=== PATIENT | male | born 1950 | race Caucasian/White ===

== ENCOUNTER 2016-12-19 17:41 | Inpatient (IN) | payer MEDICAID ==
[~2016-12-19] VITALS: Ht 182.9 cm; Wt 81.6 kg
[2016-12-19] MEDS ORDERED: Ketorolac 30mg Inj IV ONE (18:15)
[2016-12-19 18:21] LABS: BASOPHILS % (AUTO) 0.8 % (0.0-2.0); EOSINOPHILS % (AUTO) 3.1 % (0.0-3.0); LYMPHOCYTES % (AUTO) 28.9 % (20.0-45.0); MEAN CORPUSCULAR HEMOGLOBIN 32.8 PG (27.0-31.0); MEAN CORPUSCULAR HGB CONC 34.1 G/DL (32.0-36.0); MEAN CORPUSCULAR VOLUME 96 FL (80-99); MEAN PLATELET VOLUME 7.1 FL (6.5-10.1); MONOCYTES % (AUTO) 8.3 % (1.0-10.0); PLATELET COUNT 190 K/UL (150-450); RED CELL DISTRIBUTION WIDTH 12.8 % (11.6-14.8)
[2016-12-19 18:31] VITALS: BP 130/96
[2016-12-19 18:36] LABS: INR 1.1 (0.9-1.1); PROTHROMBIN TIME 11.6 SEC (9.30-11.50)
[2016-12-19 18:56] LABS: TROPONIN I < 0.30 ng/mL (<=0.30)
[2016-12-19 18:59] LABS: ALBUMIN/GLOBULIN RATIO 1.4 (1.0-2.7); CALCIUM 8.9 mg/dL (8.6-10.2); CREATININE 1.3 mg/dL (0.7-1.2); GLOMERULAR FILTRATION RATE 54.9 mL/min (>60); TOTAL PROTEIN 7.7 g/dL (6.6-8.7)
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
[2016-12-19 19:10] LABS: CKMB 7.3 ng/mL (< 6.7)
[2016-12-19 19:11] LABS: POTASSIUM 6.2 mEQ/L (3.4-4.9)
[2016-12-19] MEDS ORDERED: Bacitracin Oint UD TOPIC ONE (19:15)
[2016-12-19 19:34] LABS: BILIRUBIN,DIRECT 0.4 mg/dL (0.1-0.3)
[2016-12-19 20:06] LABS: CALCIUM 8.5 mg/dL (8.6-10.2); CARBON DIOXIDE 22 mEQ/L (20-30); CREATININE 1.2 mg/dL (0.7-1.2); GLOMERULAR FILTRATION RATE > 60 mL/min (>60); HEMOLYSIS 0
[2016-12-19 20:07] LABS: CHLORIDE 98 mEQ/L (98-107); SODIUM 134 mEQ/L (135-145)
[2016-12-19 20:12] LABS: ANION GAP 14 (5-15)
[2016-12-19 20:23] LABS: POTASSIUM 6.4 mEQ/L (3.4-4.9)
[2016-12-19] MEDS ORDERED: Calcium Gluconate 1gm/10ml vial IVP ONE ×2 (20:30→22:15)
[2016-12-19] MEDS ORDERED: Sodium Polystyrene Sulfonate 15gm Powder ORAL ONE ×2 (20:30→22:15)
[2016-12-19] MEDS ORDERED: INDERAL LA60 MG ORAL (20:51)
[2016-12-19] MEDS ORDERED: Miralax 17gm pkt ORAL PRN (22:15)
[2016-12-19] MEDS ORDERED: Mylanta II UD 30ml ORAL PRN (22:15)
[2016-12-19] MEDS ORDERED: Zolpidem 5mg tab ORAL PRN (22:15)
[2016-12-19] MEDS ORDERED: LORazepam Inj 2mg/ml 1ml IV PRN (22:15)
[2016-12-20] VITALS: BP 126/78
[2016-12-20 03:30] VITALS: BP 154/97
[2016-12-20] MEDS ORDERED: Morphine Sulfate 2mg/ml Inj ONE (03:37)
[2016-12-20] MEDS: Morphine Sulfate 2mg/ml Inj IVP PRN ×3 (03:50→15:00)
[2016-12-20 06:05] LABS: BASOPHILS % (AUTO) 0.7 % (0.0-2.0); EOSINOPHILS % (AUTO) 2.5 % (0.0-3.0); MEAN CORPUSCULAR HEMOGLOBIN 32.5 PG (27.0-31.0); MEAN CORPUSCULAR HGB CONC 34.4 G/DL (32.0-36.0); MEAN CORPUSCULAR VOLUME 94 FL (80-99); MEAN PLATELET VOLUME 7.9 FL (6.5-10.1); NEUTROPHILS % (AUTO) 64.8 % (45.0-75.0); PLATELET COUNT 186 K/UL (150-450); RED BLOOD COUNT 4.75 M/UL (4.70-6.10); RED CELL DISTRIBUTION WIDTH 12.9 % (11.6-14.8); WHITE BLOOD COUNT 7.8 K/UL (4.8-10.8)
[2016-12-20 06:26] LABS: ALANINE AMINOTRANSFERASE 61 U/L (3-41); ALBUMIN/GLOBULIN RATIO 1.1 (1.0-2.7); ANION GAP 15 (5-15); ASPARTATE AMINO TRANSFERASE 79 U/L (5-40); CALCIUM 9.2 mg/dL (8.6-10.2); CARBON DIOXIDE 26 mEQ/L (20-30); CHLORIDE 95 mEQ/L (98-107); CHOLESTEROL 170 mg/dL (< 200); CHOLESTEROL/HDL RATIO 2.9 (3.3-4.4); CREATININE 1.1 mg/dL (0.7-1.2); GLOMERULAR FILTRATION RATE > 60 mL/min (>60); HEMOLYSIS 61; LDL CHOLESTEROL (CALC.) 95 mg/dL (60-99); POTASSIUM 4.4 mEQ/L (3.4-4.9); SODIUM 136 mEQ/L (135-145)
[2016-12-20 06:29] LABS: HEMOGLOBIN A1C 5.6 % (< 6.0)
[2016-12-20 07:02] LABS: BILIRUBIN,DIRECT 0.4 mg/dL (0.1-0.3)
[2016-12-20 07:05] VITALS: BP 119/80
[2016-12-20 08:00] VITALS: BP 133/81
[2016-12-20] MEDS ORDERED: Heparin 5000 units/ml inj SUBQ SCH (09:00)
[2016-12-20] MEDS ORDERED: Propranolol LA 60mg cap ORAL SCH (09:00)
--- NOTE | 2016-12-20 09:34 | Diagnostic Imaging Report ---
Indications: Chest pain Technique: Portable AP chest Findings: Comparison: None Left hemidiaphragm elevated. Linear density overlying left lung base. Right lung normally inflated and clear. Heart size, pulmonary vasculature within normal limits. No pleural abnormalities. Aortic arch calcified. IMPRESSION: Elevation left hemidiaphragm with overlying left lung base subsegmental atelectasis versus scarring Aortosclerosis Otherwise negative
[2016-12-20] MEDS ORDERED: DuoNeb 0.5-3(2.5)mg/3ml neb HHN PRN (11:30)
[2016-12-20 12:00] VITALS: BP 141/106
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
--- NOTE | 2016-12-20 14:20 | Cardiology Report ---
APPROVED REPORT EKG Measurement Heart [id number] Atrial fibrillation Left bundle branch block Abnormal ECG
--- NOTE | 2016-12-20 14:43 | Cardiology Report ---
APPROVED REPORT EXAM: Two-dimensional and M-mode echocardiogram with Doppler and color Doppler. INDICATION Chest Pain M-Mode DIMENSIONS IVSd1.1 (0.7-1.1cm)Left Atrium (MM)4.3 (1.6-4.0cm) LVDd5.2 (3.5-5.6cm)Aortic Root3.2 (2.0-3.7cm) PWd1.3 (0.7-1.1cm)Aortic Cusp Exc.0.8 (1.5-2.0cm) LVDs4.9 (2.5-4.0cm) PWs1.3 cm Normal left ventricular chamber size. Anteroseptal wall akinesia with left ventricular ejection fraction estimated to be 20-25%. Mild left ventricular hypertrophy. No evidence of pericardial fat or effusion. Right cardiac chamber sizes are within normal limits. Mild left atrial enlargement by 2D. Aortic valve calcification with decreased cusp excursion c/w aortic stenosis. Mildly thickened mitral valve leaflets with normal excursion. Mild mitral annulus and aortic root calcification. Pulmonic valve not well visualized. Normal tricuspid valve structure. IVC dilated at 2.8cm with no physiological collapse. RA pressure of 20mmHg. A color flow and spectral Doppler study was performed and revealed: Mild aortic regurgitation. Peak aortic valve gradient of 22mmHg and a mean of 12 mmHg. Aortic valve area 1.0 cm2 calculated by continuity equation. Severe mitral regurgitation. Left ventricular diastolic dysfunction not obtainable due to A-FIB. Mild tricuspid regurgitation. Tricuspid systolic velocities suggests peak right ventricular systolic pressure of 42 mmHg Consistent with mild pulmonary hypertension.
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
[2016-12-20] MEDS ORDERED: TdaP Vaccine 0.5ml Syr IM ONE (16:00)
--- NOTE | 2016-12-20 16:34 | Cardiology Progress Note ---
Subjective Subjective [id number] Objective Last 24 Hour Vital Signs Date Time Temp Pulse Resp B/P Pulse Ox O2 Delivery O2 Flow Rate FiO2 12/20/16 12:00 97 12/20/16 12:00 97.2 112 19 141/106 96 Room Air 12/20/16 08:00 86 12/20/16 08:00 96.8 80 18 133/81 96 Room Air 12/20/16 07:30 16 119/80 98 Room Air 12/20/16 07:05 96.9 86 16 119/80 98 Room Air 12/20/16 03:30 96.9 95 16 154/97 98 Room Air 12/20/16 00:00 96.9 95 16 126/78 98 Room Air 12/19/16 19:40 96.9 12/19/16 18:41 16 12/19/16 18:31 19 130/96 98 12/19/16 17:46 97.0 92 20 147/114 99 Room Air Intake and Output 12/19/16 12/20/16 19:00 07:00 Intake Total 20 ml 480 ml Output Total 2200 ml Balance 20 ml -1720 ml Intake Oral 20 ml 480 ml Output Urine Total 2200 ml Laboratory Tests Test 12/19/16 18:15 12/19/16 19:11 12/20/16 05:50 White Blood Count 7.0 K/UL (4.8-10.8) 7.8 K/UL (4.8-10.8) Red Blood Count 4.70 M/UL (4.70-6.10) 4.75 M/UL (4.70-6.10) Hemoglobin 15.4 G/DL (14.2-18.0) 15.4 G/DL (14.2-18.0) Hematocrit 45.2 % (42.0-52.0) 44.8 % (42.0-52.0) Mean Corpuscular Volume 96 FL (80-99) 94 FL (80-99) Mean Corpuscular Hemoglobin 32.8 PG (27.0-31.0) H 32.5 PG (27.0-31.0) H Mean Corpuscular Hemoglobin Concent 34.1 G/DL (32.0-36.0) 34.4 G/DL (32.0-36.0) Red Cell Distribution Width 12.8 % (11.6-14.8) 12.9 % (11.6-14.8) Platelet Count 190 K/UL (150-450) 186 K/UL (150-450) Mean Platelet Volume 7.1 FL (6.5-10.1) 7.9 FL (6.5-10.1) Neutrophils (%) (Auto) 59.0 % (45.0-75.0) 64.8 % (45.0-75.0) Lymphocytes (%) (Auto) 28.9 % (20.0-45.0) 24.0 % (20.0-45.0) Monocytes (%) (Auto) 8.3 % (1.0-10.0) 8.0 % (1.0-10.0) Eosinophils (%) (Auto) 3.1 % (0.0-3.0) H 2.5 % (0.0-3.0) Basophils (%) (Auto) 0.8 % (0.0-2.0) 0.7 % (0.0-2.0) Prothrombin Time 11.6 SEC (9.30-11.50) H Prothromb Time International Ratio 1.1 (0.9-1.1) Activated Partial Thromboplast Time 28 SEC (23-33) Sodium Level 135 mEQ/L (135-145) 134 mEQ/L (135-145) L 136 mEQ/L (135-145) Potassium Level 6.2 mEQ/L (3.4-4.9) *H 6.4 mEQ/L (3.4-4.9) *H 4.4 mEQ/L (3.4-4.9) Chloride Level 99 mEQ/L (98-107) 98 mEQ/L (98-107) 95 mEQ/L (98-107) L Carbon Dioxide Level 21 mEQ/L (20-30) 22 mEQ/L (20-30) 26 mEQ/L (20-30) Anion Gap 15 (5-15) 14 (5-15) 15 (5-15) Blood Urea Nitrogen 26 mg/dL (7-23) H 26 mg/dL (7-23) H 25 mg/dL (7-23) H Creatinine 1.3 mg/dL (0.7-1.2) H 1.2 mg/dL (0.7-1.2) 1.1 mg/dL (0.7-1.2) Estimat Glomerular Filtration Rate 54.9 mL/min (>60) > 60 mL/min (>60) > 60 mL/min (>60) Glucose Level 123 mg/dL (74-106) H 84 mg/dL (74-106) 108 mg/dL (74-106) H Calcium Level 8.9 mg/dL (8.6-10.2) 8.5 mg/dL (8.6-10.2) L 9.2 mg/dL (8.6-10.2) Total Bilirubin 1.4 mg/dL (0.0-1.2) H 1.8 mg/dL (0.0-1.2) H Direct Bilirubin 0.4 mg/dL (0.1-0.3) H 0.4 mg/dL (0.1-0.3) H Aspartate Amino Transf (AST/SGOT) 76 U/L (5-40) H 79 U/L (5-40) H Alanine Aminotransferase (ALT/SGPT) 60 U/L (3-41) H 61 U/L (3-41) H Alkaline Phosphatase 59 U/L (40-129) 56 U/L (40-129) Total Creatine Kinase 217 U/L (38-174) H Creatine Kinase MB 7.3 ng/mL (< 6.7) H Creatine Kinase MB Relative Index 3.3 Troponin I < 0.30 ng/mL (<=0.30) Pro-B-Type Natriuretic Peptide 1547 pg/mL (0-125) H Total Protein 7.7 g/dL (6.6-8.7) 8.0 g/dL (6.6-8.7) Albumin 4.5 g/dL (3.5-5.2) 4.2 g/dL (3.5-5.2) Globulin 3.2 g/dL 3.8 g/dL Albumin/Globulin Ratio 1.4 (1.0-2.7) 1.1 (1.0-2.7) Hemoglobin A1c 5.6 % (< 6.0) Triglycerides Level 79 mg/dL (< 150) Cholesterol Level 170 mg/dL (< 200) LDL Cholesterol 95 mg/dL (60-99) HDL Cholesterol 59 mg/dL (> 60) Cholesterol/HDL Ratio 2.9 (3.3-4.4) L Thyroid Stimulating Hormone (TSH) 2.920 uIU/mL (0.300-4.500) ZEN JEAN Dec 20, 2016 16:34
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
--- NOTE | 2016-12-22 13:30 | Discharge Summary ---
Discharge Summary Hospital Course Date of Admission Dec 19, 2016 at 21:40 Date of Discharge Dec 20, 2016 at 15:45 Admitting Diagnosis hyperkalemia HPI Giovany Conley is a 66 year old male who was admitted on Dec 19, 2016 at 21:40 for Hyperkalemia Hospital Course dc summary #[id number] Discharge Discharge Disposition Patient was discharged to Discharge Diagnoses: Daniel (Cristofer),Yue PINEDO December 22, 2016 13:30
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
== END 2016-12-20 15:45 | disposition left against medical advice (07) | DRG 425 ==
LOC: EMR 18:34 → 2E 21:40 → EDBEDREQ 22:08
DX: E87.5 Hyperkalemia (principal); N17.9 Acute kidney failure, unspecified; I42.0 Dilated cardiomyopathy; I11.0 Hypertensive heart disease with heart failure; I50.20 Unspecified systolic (congestive) heart failure; E16.0 Drug-induced hypoglycemia without coma; I27.2 Other secondary pulmonary hypertension; R07.89 Other chest pain; M25.551 Pain in right hip; S29.9XXA Unspecified injury of thorax, initial encounter; Y09 Assault by unspecified means; R74.0 Nonspecific elevation of levels of transaminase and lactic acid dehydrogenase [LDH]; I48.2 Chronic atrial fibrillation
CPT/HCPCS: 36415; 71010; 72170; 80048; 80053; 80061; 82248; 82550; 82553; 82962; 83036; 83880; 84443; 84484; 85025; 85610; 85730; 90471; 90715; 93005; 93306; J2405